=== PATIENT | male | born 1980 | race Caucasian/White ===

== ENCOUNTER 2020-05-18 13:45 | Inpatient (IN) | payer OTHER, SELFPAY ==
--- NOTE | ~2020-05-18 | XR_ITS ---
EXAMINATION: XR knee RT 3V DATE: 05/18/2020 14:53 INDICATION: Right knee pain and swelling. TECHNIQUE: 3 views of right knee were obtained. COMPARISON: Right knee radiographs 09/15/2018 FINDINGS: Bone alignment is normal. No fracture. There is mild osteoarthritis of medial and patellofe moral compartments. No knee joint effusion. There is prepatellar soft tissue swelling. IMPRESSION: 1. Mild right knee osteoarthritis. 2. Prepatellar bursitis. Reviewed, dictated and finalized at location B.
[2020-05-18 13:58] VITALS: BP 131/79; PULSE 78; RESP 20; TEMP 37.1; O2SAT 98
--- NOTE | 2020-05-18 14:18 | ED.LOWEXIN ---
HPI - Extremity Injury (Lower) General Chief Complaint: Extremity Injury, Lower Stated Complaint: Knee Pain, Swelling, Low grade fever Time Seen by Provider: 05/18/20 14:18 Source: patient Mode of arrival: ambulatory Limitations: no limitations History of Present Illness HPI Narrative: 40-year-old man comes to the emergency department complaining of right knee pain redness and swelling. He states the symptoms started 2 days ago. He states he felt feverish but his temperature was not over 100?. He denies nausea, vomiting, numbness, tingling or recent injury. He has no history of diabetes or prior skin infection other than a postop wound infection in his ankle many years ago. complaint: other ( Knee pain and swelling) Onset (ago): day(s) (2) Injury: Right: knee Type of Injury: unknown Severity: moderate Relieving factors: rest Exacerbating factors: movement and palpation Associated symptoms: ambulatory Treatments prior to arrival: NSAIDS Related Data Home Medications Medication Instructions Recorded Confirmed No Home Medications 05/18/20 05/18/20 Allergies Allergy/AdvReac Type Severity Reaction Status Date / Time Penicillins Allergy Unknown Pruritic Verified 05/18/20 14:07 rash morphine Allergy Gastrointestinal Verified 05/18/20 14:07 Upset Review of Systems Constitutional: Constitutional: Denies chills and Reports fever(s) Eyes: Eyes: Denies change in vision and Denies photophobia ENT: Denies dysphagia, Denies nasal congestion and Denies sore throat Cardiovascular: Cardiovascular: Denies chest pain and Denies radiating jaw, neck or arm pain Respiratory: Respiratory: Denies cough, Denies dyspnea and Denies wheezing Gastrointestinal: Gastrointestinal: Denies abdominal pain, Denies nausea and Denies vomiting Musculoskeletal: Musculoskeletal: Reports as per HPI, Reports arthralgias, Reports joint swelling and Denies muscle cramps Integumentary/Breasts: Skin/Breast: Denies pruritus, Denies rash and Denies skin ulcer Neurologic: Denies vertigo, Denies dizziness, Denies syncope, Denies focal weakness and Denies numbness Hematologic/Lymphatic: Hematologic/Lymphatic: Denies easy bleeding and Denies easy bruising Allergic/Immunologic: Allergic/Immunologic: Denies lip swelling, Denies throat swelling and Denies wheezing PMFSH Social History Social History Smoking status: Former smoker Second hand tobacco smoke exposure: No Smoking end date: 10/07/12 Alcohol intake: unknown Substance use: never Substance use type: does not use Gender identity (if verbalized by the patient): Male Sexual Orientation (if Verbalized by the Patient): Straight or Heterosexual Spiritual care concerns: No Exam Const: General: healthy appearing and alert Orientation/consciousness: patient oriented x3 Limitations: no limitations Other: moderate acute distress HENMT: Face and sinus: normal facial exam Eyes: Conjunctivae: conjunctivae normal Pupils: Equal, round and reactive pupils present EOM: EOMs intact bilaterally Resp: Effort & Inspection: normal respiratory effort and not labored Auscultation: clear to auscultation bilaterally, no rales, no rhonchi and no wheezes Cardio: Rate: regular rate Rhythm: regular rhythm Heart sounds: no murmurs Skin: General skin exam: normal color, no jaundice and no pallor Rashes: no rashes Neuro: General: patient oriented x3, moves all extremities, no focal motor deficits and CN's II-XI intact bilaterally Speech: normal speech Gait exam (Neuro): Normal gait present Extrem: General: no clubbing, cyanosis or edema Other: there is edematous swelling over the right patella with erythema and induration. There is no fluctuance. Minimal joint effusion if any. Patient is holding it extended period there is no posterior tenderness and the patient can flex active and passive to 45 Degrees. Distal neurovascu
[2020-05-18 14:43] LABS: Basophils Absolute Auto 0.05 K/mm3 (0.00-0.10); Basophils Percent Auto 0.5 % (0.0-1.0); Eosinophils Absolute Auto 0.09 K/mm3 (0.02-0.50); Eosinophils Percent Auto 0.9 % (1.0-6.0); Hematocrit 44.3 % (40.0-54.0); Hemoglobin 14.8 g/dL (14.0-18.0); Immature Granulocyte Absolute 0.03 K/mm3 (0.00-0.00); Immature Granulocyte Percent A 0.3 % (0.0-0.0); Lymphocytes Absolute Auto 1.57 K/mm3 (1.10-4.50); Lymphocytes Percent Auto 15.7 % (18.0-42.0); Mean Corpuscular HGB Conc 33.4 g/dL (32.0-36.0); Mean Corpuscular Hemoglobin 30.8 pg (27.0-31.0); Mean Corpuscular Volume 92.1 fL (78.0-102.0); Mean Platelet Volume 9.9 fl (8.7-11.0); Monocytes Absolute Auto 1.37 K/mm3 (0.10-0.90); Monocytes Percent Auto 13.7 % (2.0-11.0); Neutrophils Absolute Auto 6.9 K/mm3 (1.7-7.2); Neutrophils Percent Auto 68.9 % (50.0-70.0); Platelet Count Result 303 K/mm3 (150-420); Red Blood Count 4.81 M/mm3 (4.70-6.10); Red Cell Distribution Width 11.9 % (11.6-14.4)
[2020-05-18 15:03] LABS: Alanine Aminotransferase 36 U/L (16-63); Albumin Level 3.8 g/dL (3.4-5.0); Alkaline Phosphatase 86 U/L (46-116); Anion Gap 7 mmol/L (8-16); Aspartate Amino Transferase 24 U/L (15-37); Bilirubin,Total 1.3 mg/dL (0.00-1.00); Blood Urea Nitrogen 27 mg/dL (7-18); CRP 6.3 mg/dL (0.0-0.9); Carbon Dioxide 28 mmol/L (21-32); Chloride 102 mmol/L (98-108); Estimated CRCL calculation 69 ml/min; Estimated Glomerular Filt Rate > 60; Glucose 98 mg/dL (70-99); Osmolality Calculated 289 mOsm/kg (285-295); Potassium 4.3 mmol/L (3.5-5.1); Sodium 137 mmol/L (136-145); Total Protein 7.4 g/dL (6.4-8.2); Uric Acid 3.3 mg/dL (3.5-7.2)
[2020-05-18 15:46] LABS: Erythrocyte Sedimentation Rate 20 mm/hr (0-15)
--- NOTE | 2020-05-18 15:56 | PC.NURSE ---
[id number] Dr Swanson paged for ortho consult
--- NOTE | 2020-05-18 16:25 | PC.NURSE ---
[id number] Dr Swanson returned page and spoke with Dr Dill
[2020-05-18 17:21] VITALS: BP 122/69; PULSE 64; RESP 20; O2SAT 96
[2020-05-18 18:07] VITALS: BP 120/66; PULSE 62; RESP 18; TEMP 36.7; O2SAT 94; BMI 27.9
--- NOTE | 2020-05-18 18:18 | PC.NURSE ---
pt arrive to the unit via w/c at 530pm. assisted to bed, call light in reach. pt denies any significant medical history except ankle fracture with surgical repair many years ago. pt also denies any significant family history. alert and oriented. vanco infusing as ordered. oriented to unit, bed functions and call light use.
[2020-05-18] MEDS: CEFEPIME 1 GM in DEXTROSE 5% IN WATER 50 ML IVPB (19:25)
[2020-05-19] VITALS: BP 110/58; PULSE 66; RESP 16; TEMP 36.2; O2SAT 95
[2020-05-19 05:37] LABS: Basophils Absolute Auto 0.04 K/mm3 (0.00-0.10); Basophils Percent Auto 0.5 % (0.0-1.0); Eosinophils Absolute Auto 0.13 K/mm3 (0.02-0.50); Eosinophils Percent Auto 1.5 % (1.0-6.0); Hematocrit 43.2 % (40.0-54.0); Hemoglobin 14.4 g/dL (14.0-18.0); Immature Granulocyte Absolute 0.03 K/mm3 (0.00-0.00); Immature Granulocyte Percent A 0.4 % (0.0-0.0); Lymphocytes Absolute Auto 1.51 K/mm3 (1.10-4.50); Mean Corpuscular HGB Conc 33.3 g/dL (32.0-36.0); Mean Corpuscular Hemoglobin 30.8 pg (27.0-31.0); Mean Corpuscular Volume 92.3 fL (78.0-102.0); Mean Platelet Volume 9.9 fl (8.7-11.0); Monocytes Percent Auto 14.3 % (2.0-11.0); Neutrophils Absolute Auto 5.5 K/mm3 (1.7-7.2); Neutrophils Percent Auto 65.3 % (50.0-70.0); Platelet Count Result 259 K/mm3 (150-420); Red Blood Count 4.68 M/mm3 (4.70-6.10); Red Cell Distribution Width 11.9 % (11.6-14.4); White Blood Count 8.4 K/mm3 (4.8-10.8)
[2020-05-19 05:54] LABS: Alanine Aminotransferase 56 U/L (16-63); Albumin Level 3.2 g/dL (3.4-5.0); Alkaline Phosphatase 90 U/L (46-116); Anion Gap 6 mmol/L (8-16); Aspartate Amino Transferase 53 U/L (15-37); Blood Urea Nitrogen 24 mg/dL (7-18); CRP 8.3 mg/dL (0.0-0.9); Calcium 8.3 mg/dL (8.5-10.1); Carbon Dioxide 28 mmol/L (21-32); Chloride 103 mmol/L (98-108); Estimated CRCL calculation 73 ml/min; Estimated Glomerular Filt Rate > 60; Glucose 119 mg/dL (70-99); Osmolality Calculated 289 mOsm/kg (285-295); Potassium 4.1 mmol/L (3.5-5.1); Sodium 137 mmol/L (136-145); Total Protein 6.8 g/dL (6.4-8.2)
[2020-05-19] MEDS: CEFEPIME 1 GM in DEXTROSE 5% IN WATER 50 ML IVPB ×2 (05:56→17:49)
[2020-05-19 07:25] VITALS: BP 118/67; PULSE 68; RESP 18; TEMP 37.2; O2SAT 95
--- NOTE | 2020-05-19 07:51 | PM.IMHP ---
H&P: HPI History of Present Illness Date/Time: 05/19/20 07:51 Chief complaint: RIGHT PREPATELLAR BURSITIS Narrative: Varun Keita is a 40 year old male admitted to the ED with low-grade fever and right knee anterior redness, erythema, swelling, warmth, and severe pain. Last night, Varun came to the emergency department complaining of right knee pain redness and swelling. He states the symptoms started 2 days ago. He states he felt feverish but his temperature was not over 100?. He denies nausea, vomiting, numbness, tingling or recent injury. He has no history of diabetes. He was admitted for Septic prepatellar bursitis of right knee. He informed me today that he has injured this right knee before and they have had to remove fluid from that right knee joint due to past pain and swelling, it also required oral antibiotics in the past. He has also had surgery to his left ankle many years ago, in which the surgery resulted in a bone chip, severe infection, with several weeks of IV antibiotics afterwards. Varun denies having multiple skin infections or wounds that results in infections. No one else in the house has multiple skin infections either. 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 Today Varun states that he is no better, is concerned because he stated that he cannot walk on that leg at all without severe in significant pain, and the leg swelling and redness and warmth has not improved in his opinion. Varun was started on vancomycin IV and cephalosporin IV last night and is only received 2 doses of each. We will continue IV antibiotics until tomorrow, with plans to discharge home on oral antibiotics. His blood cultures and urine cultures remain pending with lab. Started him on 400 mg of Motrin q.12 hours for anti inflammatory response. Varun may have aseptic bursitis due to trauma and repetitive injury to his right knee. With his profession of concrete work and frequently kneeling down onto his knees, spreading concrete while on his knees, and that frequent daily trauma of dropping to his knees - this may be setting him up for acute septic and/or aseptic bursitis in this knee. He currently has no puncture wound or abrasion of the skin overlying his right knee or right leg, so nothing suggestive of trauma. No sign of an abscess and no drainage noted. No sign of a spider bite or insect bite. It is difficult to get joint motion from his patella, at this time due to the swelling and fluid. He may have superficial septic bursitis due to his presence of erythema, pain, swelling, and warmth involving the olecranon, prepatellar, or infrapatellar bursae. Review of Systems Review of Systems: All systems reviewed & are unremarkable except as noted in HPI and below Constitutional: Constitutional: Reports as per HPI, Denies chills, Reports fever(s) and Reports weakness Eyes: Eyes: Reports as per HPI, Denies change in vision and Denies photophobia ENT: Reports as per HPI, Reports Normal hearing present, Denies dysphagia, Denies vertigo, Denies dizziness, Denies lip swelling, Denies nasal congestion, Denies sore throat and Denies throat swelling Cardiovascular: Cardiovascular: Reports as per HPI, Denies chest pain, Denies syncope, Denies pedal edema, Reports leg edema ( right leg only, and only at the knee), Denies radiating jaw, neck or arm pain, Denies palpitations and Denies dyspnea Respiratory: Respiratory: Reports as per HPI, Reports no additional respiratory complaints, Denies chest congestion, Denies cough, Denies dyspnea and Denies wheezing Gastrointestinal: Gastrointestinal: Reports as per HPI, Denies abdominal pain, Denies melena, Denies dysphagia, Denies diarrhea, Denies nausea and Denies vomiting Genitourinary: Genitourinary: Reports as per HPI Musculoskeletal: Musculoskeletal: Reports as per HPI, Reports arthralgias ( right knee red warm swollen), Reports joint swelling, Denies muscle
[2020-05-19 08:03] LABS: Magnesium 1.9 mg/dL (1.8-2.4)
[2020-05-19 08:20] LABS: BNP 17.9 pg/mL (0-100)
[2020-05-19 09:00] LABS: Erythrocyte Sedimentation Rate 23 mm/hr (0-15)
[2020-05-19] MEDS: SACCHAROMYCES BOULARDII 250 MG CAPSULE PO ×2 (09:25→16:14)
[2020-05-19] MEDS: LIDOCAINE 5% PATCH 2 PATCH TRANSDERM (09:25)
[2020-05-19] MEDS: ACETAMINOPHEN 500 MG TABLET 1000 MG PO ×2 (09:25→20:52)
[2020-05-19] MEDS: ENOXAPARIN 40 MG/0.4 ML SYRINGE SUB-Q (09:25)
[2020-05-19] MEDS: IBUPROFEN 400 MG TABLET PO (14:46)
[2020-05-19 16:00] VITALS: BP 111/57; PULSE 58; RESP 16; TEMP 37; O2SAT 95
[2020-05-20] VITALS: BP 111/63; PULSE 58; RESP 16; TEMP 37.2; O2SAT 97
[2020-05-20 03:40] LABS: Hematocrit 43.1 % (40.0-54.0); Hemoglobin 14.2 g/dL (14.0-18.0); Mean Corpuscular HGB Conc 32.9 g/dL (32.0-36.0); Mean Corpuscular Hemoglobin 30.5 pg (27.0-31.0); Mean Corpuscular Volume 92.7 fL (78.0-102.0); Mean Platelet Volume 10.1 fl (8.7-11.0); Platelet Count Result 266 K/mm3 (150-420); Red Blood Count 4.65 M/mm3 (4.70-6.10); Red Cell Distribution Width 11.9 % (11.6-14.4)
[2020-05-20 03:56] LABS: Anion Gap 7 mmol/L (8-16); Blood Urea Nitrogen 24 mg/dL (7-18); CRP 7.6 mg/dL (0.0-0.9); Calcium 8.6 mg/dL (8.5-10.1); Carbon Dioxide 28 mmol/L (21-32); Chloride 103 mmol/L (98-108); Estimated CRCL calculation 75 ml/min; Estimated Glomerular Filt Rate > 60; Glucose 107 mg/dL (70-99); Osmolality Calculated 290 mOsm/kg (285-295); Potassium 4.3 mmol/L (3.5-5.1); Sodium 138 mmol/L (136-145); Vancomycin Trough 7.1 ug/mL (10.0-15.0)
[2020-05-20 04:01] LABS: Band Neutrophils Percent 0 % (0-6); Basophils Absolute Manual 0.07 K/mm3 (0-0.1); Basophils Percent Manual 1 % (0-1); Eosinophils Absolute Manual 0.28 K/mm3 (0.02-0.5); Eosinophils Percent Manual 4 % (1-6); Lymphocytes Absolute Manual 1.61 K/mm3 (1.1-4.5); Lymphocytes Percent Manual 23 % (18-44); Monocytes Absolute Manual 1.12 K/mm3 (0.1-0.90); Monocytes Percent Manual 16 % (3-9); Neutrophils Absolute Manual 3.92 K/mm3 (1.3-6.7); Neutrophils Percent Manual 56 % (46-73); Platelet Estimate Adequate (Adequate)
--- NOTE | 2020-05-20 04:12 | PC.NURSE ---
Pipeline called with results of vanco trough. Pharmacist stated level of 7.1 is not unusual for having received 2 doses. Continue same dose and he will pass on to pharmacy in the morning. No new vanco trough ordered at this time.
[2020-05-20] MEDS: IBUPROFEN 400 MG TABLET PO (04:24)
[2020-05-20 05:05] LABS: Erythrocyte Sedimentation Rate 40 mm/hr (0-15)
[2020-05-20] MEDS: CEFEPIME 1 GM in DEXTROSE 5% IN WATER 50 ML IVPB (05:32)
[2020-05-20 07:38] VITALS: BP 113/72; PULSE 56; RESP 18; TEMP 36.6; O2SAT 95
--- NOTE | 2020-05-20 08:14 | PM.DS ---
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 x-ray of the right knee yesterday showed FINDINGS: Bone alignment is normal. No fracture. There is mild osteoarthritis of medial and patellofemoral compartments. No knee joint effusion. There is prepatellar soft tissue swelling IMPRESSION:1. Mild right knee osteoarthritis.2. Prepatellar bursitis. his white count greatly improved from 10 down to a 7 CRP Is elevated ranging from 6.3 to 8.3 to 7.6, ESR has increased as well from 20 to 23 to 40 , I have advised him to follow-up with a home hospice aide as he may be a risk for rheumatoid arthritis due to his profession and the complications he has been having with his joints. no fevers noted overnight continue pain control received 4 doses of IV vanc, will discharge on oral antibiotics per Dr. Hood's orders of PO Bactrim and Keflex. discharge patient to follow-up with an environmental management specialist that can he can see on a regular basis to treat this condition as it will likely flare-up at time to time, and may even become infected again. <Denita Navarro NP - Last Filed: 05/20/20 11:13> (2) Uncontrolled pain: Code(s): R52 - Pain, unspecified <Denita Navarro NP - Last Filed: 05/20/20 11:13> Status: Acute <Denita Navarro NP - Last Filed: 05/20/20 11:13> Assessment and Plan: scheduled Tylenol and scheduled Motrin ordered p.r.n. [place] 5 mg ordered lidocaine patches ice pack to be applied every 6 hours PT evaluation completed and okay to be discharged, no need for outpatient PT OT today pain is well controlled, patient can even been the knee little bit today to a degree of 30-40 degrees patient is able to walk and ambulate about his hospital room today with pain at a tolerable level patient is ready and wants to go home today. <Denita Navarro NP - Last Filed: 05/20/20 11:13> (3) Elevated erythrocyte sedimentation rate: Code(s): R70.0 - Elevated erythrocyte sedimentation rate <Denita Navarro NP - Last Filed: 05/20/20 11:13> Status: Acute <Denita Navarro NP - Last Filed: 05/20/20 11:13> Assessment and Plan: he was started on IV cefazolin and IV vancomycin likely reactive and/or infective will continue to monitor CBC counts continued to encourage oral hydration CRP Is elevated ranging from 6.3 to 8.3 to 7.6, ESR has increased as well from 20 to 23 to 40 , I have advised him to follow-up with a home hospice aide as he may be a risk for rheumatoid arthritis due to his profession and the complications he has been having with his joints. received 4 doses of IV vanc, will discharge on oral antibiotics per Dr. Hood's orders of PO Bactrim and Keflex. <Denita Navarro NP - Last Filed: 05/20/20 11:13> (4) Elevated C-reactive protein (CRP): Code(s): R79.82 - Elevated C-reactive protein (CRP) <Denita Navarro NP - Last Filed: 05/20/20 11:13> Status: Acute <Denita Navarro NP - Last Filed: 05/20/20 11:13> Assessment and Plan: he was started on IV cefazolin and IV vancomycin likely reactive and/or infective will continue to monitor CBC counts continued to encourage oral hydration CRP Is elevated ranging from 6.3 to 8.3 to 7.6, ESR has increased as well from 20 to 23 to 40 ,
[2020-05-20 08:22] LABS: Uric Acid 2.7 mg/dL (3.5-7.2)
[2020-05-20] MEDS: SACCHAROMYCES BOULARDII 250 MG CAPSULE PO (09:05)
[2020-05-20] MEDS: ACETAMINOPHEN 500 MG TABLET 1000 MG PO (09:05)
[2020-05-20] MEDS: LIDOCAINE 5% PATCH 2 PATCH TRANSDERM (09:06)
--- NOTE | 2020-05-20 10:35 | PC.NURSE ---
Discharge to home with son, ambulatory, denies needs, no questions regarding discharge instructions, personal items returned to patient
--- NOTE | 2020-05-21 08:25 | PM.EVENT ---
Event Note Event Note Event Note: This note is written regarding patient encounter 05/20/20. I have reviewed the chart, discussed with the N.P. hospitalist and discussed a plan. I agree with today's note.
== END 2020-05-20 10:35 | disposition home or self-care (01) | DRG 558 ==
LOC: CHSED 14:00 → CHS2ND 17:21
PROVIDERS: Nurse Practitioner; Admitting Provider Emergency Medicine; Emergency Provider Emergency Medicine; Visit Provider Emergency Medicine
DX: M70.41 Prepatellar bursitis, right knee (principal)
CPT/HCPCS: 36415; 73562; 80048; 80053; 80202; 83735; 83880; 84550; 85025; 85652; 86140; 87040; 97161; 99285; A9270; J0692; J1650; J3370

== ENCOUNTER 2022-08-05 08:40 | Emergency (ER) | payer OTHER, SELFPAY ==
--- NOTE | ~2022-08-05 | CT_ITS ---
EXAMINATION: CT abdomen pelvis wo con DATE: 08/05/2022 10:42 INDICATION: Left lower quadrant pain. History of diverticulitis. TECHNIQUE: Computed tomography (CT) of the abdomen and pelvis was performed without intravenous contr ast. The dose-length product was 730.58 mGy-cm. Automated exposure control and iterative reconstructi on technique were employed. COMPARISON: CT dated 09/03/2011 FINDINGS: Lung bases are unremarkable. Heart size normal. No significant pleural or pericardial effus ion. No significant vascular abnormality. No lymphadenopathy. There is mild thickening of the distal descending colon with associated diverticula and surrounding i nflammatory change, consistent with acute diverticulitis. No free air or abscess. The liver, spleen, pancreas, adrenal glands and kidneys are unremarkable. Normal appendix. Gallbladde r is present. No abnormal pelvic masses or fluid collections. 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 IMPRESSION: 1. Acute uncomplicated descending colon diverticulitis. Reviewed, dictated and finalized at location A.
[2022-08-05 08:41] VITALS: BP 140/90; PULSE 76; RESP 20; TEMP 36.2; O2SAT 97
--- NOTE | 2022-08-05 10:25 | ED.ABDPAIN ---
HPI - Abdominal Pain General Chief Complaint: Abdominal Pain Stated Complaint: abd pain Time Seen by Provider: 08/05/22 10:03 History of Present Illness HPI narrative: 42-year-old male history of diverticulitis presents emergency room for evaluation of left lower quadrant pain that began last night. States pain is similar to previous episodes diverticulitis. Denies any constipation or diarrhea. Denies any melanotic or hematochezia stools. Denies any nausea or vomiting. Denies fever. Related Data Allergies Allergy/AdvReac Type Severity Reaction Status Date / Time Penicillins Allergy Unknown Pruritic Verified 05/24/20 09:37 rash morphine Allergy Gastrointestinal Verified 05/24/20 09:37 Upset Review of Systems Review of Systems: CONSTITUTIONAL: Denies fever, chills, or sweats. EYES: Denies visual changes, redness, or discharge. ENT: Denies rhinorrhea, congestion, sore throat, or otalgia. CARDIOVASCULAR: Denies chest pain, palpitations, or edema. RESPIRATORY: Denies cough or dyspnea. GASTROINTESTINAL: Reports left lower quadrant abdominal pain GENITOURINARY: Denies dysuria or hematuria. SKIN: Denies rash or itching. MUSCULOSKELETAL: Denies back pain, joint pain, or myalgia. NEUROLOGIC: Denies headache, numbness, dizziness, or weakness. PSYCHIATRIC: Denies anxiety or depression. [facility] [place] Past Medical History Medical History Elevated C-reactive protein (CRP) Elevated erythrocyte sedimentation rate Prepatellar bursitis Right knee pain Septic prepatellar bursitis of right knee Uncontrolled pain Social History Social History Smoking status: Former smoker Second hand tobacco smoke exposure: No Smoking end date: 10/07/12 Alcohol intake: current Alcohol use details: Occasional Substance use: never Substance use type: does not use Gender identity (if verbalized by the patient): Male Sexual Orientation (if Verbalized by the Patient): Straight or Heterosexual Spiritual care concerns: No Exam Narrative: GENERAL: Well-appearing, well-nourished, no physical limitations, and in no acute distress. HEAD: Normocephalic, atraumatic. EYES: Conjunctivae normal, PERRLA and EOMI. CHEST: Clear to auscultation. No respiratory distress. No wheezes rales or rhonchi. HEART: Regular rate and rhythm. No murmur heard. Normal peripheral pulses. ABDOMEN: Soft, left lower quadrant tenderness, nondistended, normal active bowel sounds. BACK: No CVA tenderness EXTREMITIES: Normal range of motion. No edema. No clubbing or cyanosis SKIN: Warm, dry, no rash. No noted wounds NEURO: No focal deficits. Alert and oriented x3. MAEW. CN's II-XI intact bilaterally, normal gait PSYCH: Cooperative. Normal mood and affect. Course Vital Signs Vital signs: Vital Signs Temperature 36.2 C L 08/05/22 08:41 Pulse Rate 76 08/05/22 08:41 Respiratory Rate 20 08/05/22 08:41 Blood Pressure 140/90 08/05/22 08:41 Pulse Oximetry 97 08/05/22 08:41 Oxygen Delivery Room Air 08/05/22 08:41 Temperature 36.2 C L 08/05/22 08:41 Pulse Rate 76 08/05/22 08:41 Respiratory Rate 20 08/05/22 08:41 Blood Pressure 140/90 08/05/22 08:41 Pulse Oximetry 97 08/05/22 08:41 Oxygen Delivery Room Air 08/05/22 08:41 MDM - Abdominal Pain Lab Data Result diagrams: 08/05/22 10:15 08/05/22 10:15 Labs: Lab Results 08/05/22 08/05/22 08/05/22 Range/Units 10:15 10:15 10:15 WBC 8.4 (4.5-10.0) K/mm3 RBC 4.74 (4.6-6.20) M/mm3 Hgb 14.7 (14.0-18.0) g/dL Hct 42.9 (42.0-52.0) % MCV 90.5 (80-100) fl MCH 31.0 (26-34) pg MCHC 34.3 (32-36) g/dl RDW 12.3 (11.5-14.5) % Plt Count 296 (150-375) k/mm3 MPV 9.6 (7.4-10.4) fl Immature Gran % (Auto) 0.4 (0-0.5) % Neut % (Auto) 65.9 (45.5-73.1) % Lymph % (Auto) 19.2 (18.3-44.2)
[2022-08-05 10:30] LABS: Basophils Absolute Auto 0.1 K/mm3 (0.0-0.1); Basophils Percent Auto 0.6 % (0.2-1.2); Eosinophils Absolute Auto 0.1 K/mm3 (0-0.3); Eosinophils Percent Auto 1.1 % (0-4.4); Hematocrit 42.9 % (42.0-52.0); Hemoglobin 14.7 g/dL (14.0-18.0); Immature Granulocyte Absolute 0.03 K/mm3 (0.00-0.031); Immature Granulocyte Percent A 0.4 % (0-0.5); Lymphocytes Absolute Auto 1.61 K/mm3 (0.9-3.2); Lymphocytes Percent Auto 19.2 % (18.3-44.2); Mean Corpuscular HGB Conc 34.3 g/dl (32-36); Mean Corpuscular Volume 90.5 fl (80-100); Mean Platelet Volume 9.6 fl (7.4-10.4); Monocytes Absolute Auto 1.1 K/mm3 (0.1-0.6); Monocytes Percent Auto 12.8 % (2.6-8.5); Neutrophils Absolute Auto 5.5 K/mm3 (1.3-6.7); Neutrophils Percent Auto 65.9 % (45.5-73.1); Platelet Count Result 296 k/mm3 (150-375); Red Blood Count 4.74 M/mm3 (4.6-6.20); Red Cell Distribution Width 12.3 % (11.5-14.5); White Blood Count 8.4 K/mm3 (4.5-10.0)
[2022-08-05 10:34] LABS: Appearance Urine Clear (Clear); Bilirubin Urine Negative (Negative); Blood Urine Negative (Negative); Color Urine Yellow (Yellow); Glucose Urine UA Negative (Negative); Ketones Urine Negative (Negative); Leukocyte Esterase Ur Negative LEU/UL (Negative); Nitrate Urine Negative (Negative); Protein Urine Negative (Negative); Urobilinogen Urine 0.2 mg/dL (<2.0); pH Urine 8.5 (5.0-9.0)
[2022-08-05 10:41] LABS: Alanine Aminotransferase 35 U/L (6-50); Albumin Level 4.4 g/dL (3.5-5.1); Alkaline Phosphatase 72 U/L (38-126); Anion Gap 8 mmol/L (8-16); Aspartate Amino Transferase 29 U/L (17-59); Bilirubin,Total 1.6 mg/dL (0.2-1.3); Blood Urea Nitrogen 19 mg/dL (9-20); Calcium 8.6 mg/dL (8.4-10.2); Carbon Dioxide 26 mmol/L (22-30); Chloride 102 mmol/L (98-107); Estimated CRCL calculation 73 ml/min; Estimated Glomerular Filt Rate > 60; Glucose 102 mg/dL (65-110); Lipase 59 U/L (23-300); Sodium 136 mmol/L (137-145)
[2022-08-05 10:49] LABS: Add Urine Microscopic? NO
== END 2022-08-05 11:31 | disposition home or self-care (01) ==
PROVIDERS: Emergency Provider Nurse Practitioner Family
DX: K57.32 Diverticulitis of large intestine without perforation or abscess without bleeding (principal); Z87.891 Personal history of nicotine dependence
CPT/HCPCS: 36415; 74176; 80053; 81003; 83690; 85025; 99284

== ENCOUNTER 2022-12-03 09:00 | Outpatient (NON) | payer OTHER, SELFPAY | END 2022-12-03 09:01 | disposition home or self-care (01) | LOC: ANHLAB 12-04 07:57 | PROVIDERS: PCP Physician Assistant; Visit Provider Internal Medicine Gastroenterology | DX: K21.9 Gastro-esophageal reflux disease without esophagitis (principal) | CPT/HCPCS: 88305 ==

== ENCOUNTER 2022-12-03 11:53 | Day surgery (SDC) | payer OTHER, SELFPAY ==
[2022-11-22 13:44] VITALS: BMI 31.6
--- NOTE | 2022-12-03 09:08 | P.PNAN_ITS ---
Anes - Initial Pre Proc Eval Procedure: Operation Date: 12/03/22 13:30 Proposed Procedures p Esophagogastroduodenoscopy - Cyril Fulton MD Date/Time: 12/03/22 09:08 Surgeon: Cyril Fulton MD Pre Op Diagnosis: Gerd Patient Data Age: 42 Gender: M Height: 1.78 m Weight: 100 kg Allergies Allergy/AdvReac Type Severity Reaction Status Date / Time morphine AdvReac Unknown Gastrointestinal Verified 12/03/22 12:46 Upset Penicillins AdvReac Unknown Pruritic Verified 12/03/22 12:46 rash Home Medications Medication Instructions Recorded Confirmed Type No Home Medications 11/22/22 12/03/22 History Patient hx anesthesia problems: none Family hx anesthesia problems: none Results Review: All pre-operative results and documents have been reviewed as part of the pre- operative evaluation. [facility] Past Medical History Medical History Elevated C-reactive protein (CRP) Elevated erythrocyte sedimentation rate GERD (gastroesophageal reflux disease) Prepatellar bursitis Right knee pain Septic prepatellar bursitis of right knee Uncontrolled pain Social History Social History Smoking status: Never smoker Second hand tobacco smoke exposure: No Smoking end date: 10/07/12 Alcohol intake: current Alcohol use details: Occasional Substance use: never Substance use type: does not use Living arrangements: with family Gender identity (if verbalized by the patient): Male Sexual Orientation (if Verbalized by the Patient): Straight or Heterosexual Spiritual care concerns: No Anes - Eval Final PreProcedure Day of Procedure 12/03/22 09:08 Patient weight: obese Heart: regular rate and rhythm Lungs: clear to auscultation Airway: Mallampati scale class II Neurological: alert and oriented Last oral intake: >/= 8 hours ASA classification: II Emergent: no Anesthetic plan: proceed Anesthesia type and monitoring: general GIVS and standard monitoring Results Review: All pre-operative results and documents have been reviewed as part of the pre- operative evaluation. Informed Consent: The patient's anesthetic plan and its attendant risks and benefits were discussed with the patient/family/POA. Questions were solicited and answers provided to the satisfaction of the patient/family/POA.
[2022-12-03 12:30] VITALS: BP 124/80; PULSE 54; RESP 20; TEMP 36.4; O2SAT 100
[2022-12-03] MEDS: LACTATED RINGERS 1,000 ML 150 ML IV CONT (12:45)
--- NOTE | 2022-12-03 12:49 | PM.HPGS ---
History of Present Illness History of Present Illness Consent: Risks, benefits, and alternatives have been discussed and questions answered. Patient agrees to proceed with procedure. Chief complaint: Gerd Narrative: Varun Keita is a 42 year old male with been suffering from heartburn for the past several years. At times he will even wake up at night choking on acid. He began taking omeprazole about 3 or 4 weeks ago it has helped significantly. He denies dysphagia or weight loss. Review of Systems Review of Systems: All systems reviewed & are unremarkable except as noted in HPI and below PMFSH Past Medical History Medical History Elevated C-reactive protein (CRP) Elevated erythrocyte sedimentation rate GERD (gastroesophageal reflux disease) Prepatellar bursitis Right knee pain Septic prepatellar bursitis of right knee Uncontrolled pain Social History Social History Smoking status: Never smoker Second hand tobacco smoke exposure: No Smoking end date: 10/07/12 Alcohol intake: current Alcohol use details: Occasional Substance use: never Substance use type: does not use Living arrangements: with family Gender identity (if verbalized by the patient): Male Sexual Orientation (if Verbalized by the Patient): Straight or Heterosexual Spiritual care concerns: No Meds Home Medications and Allergies Home Medications Medication Instructions Recorded Confirmed Type No Home Medications 11/22/22 12/03/22 History Allergies Allergy/AdvReac Type Severity Reaction Status Date / Time morphine AdvReac Unknown Gastrointestinal Verified 12/03/22 12:46 Upset Penicillins AdvReac Unknown Pruritic Verified 12/03/22 12:46 rash Vital Signs Vital Signs - 24 hr 12/03/22 12:30 Temperature 36.4 C Pulse Rate 54 L Respiratory Rate 20 Blood Pressure 124/80 Pulse Oximetry 100 Oxygen Delivery Room Air Exam Const: General: alert Orientation/consciousness: patient oriented x3 Resp: Auscultation: clear to auscultation bilaterally Cardio: Rhythm: regular rhythm GI: GI Palp: Yes Soft to palpation and No Tenderness to palpation present (GI) Neuro: General: patient oriented x3 Assessment and Plan Assessment and plan (1) GERD (gastroesophageal reflux disease): Code(s): K21.9 - Gastro-esophageal reflux disease without esophagitis Status: Acute Assessment and Plan: EGD with possible biopsy or dilatation or cautery.
[2022-12-03 13:04] VITALS: BP 108/71; PULSE 59; RESP 16; O2SAT 96
[2022-12-03 13:14] VITALS: BP 109/75; PULSE 56; RESP 16; O2SAT 98
[2022-12-03 13:24] VITALS: BP 116/83; PULSE 50; RESP 20; O2SAT 97
--- NOTE | 2022-12-03 13:35 | WPDANESPN ---
Anes - Prog Note Post-Op Date/Time: 12/03/22 13:35 Cardiovascular status: normal Respiratory status: normal Airway patency: baseline Mental status: baseline Post-Op hydration status: normal Vital Signs: Last Vital Signs Temp 36.4 C 12/03/22 12:30 Pulse 54 L 12/03/22 12:30 Resp 20 12/03/22 12:30 BP 124/80 12/03/22 12:30 Pulse Ox 100 12/03/22 12:30 O2 Del Method Room Air 12/03/22 12:30 Pain Score (VAS): 0 I/O: Intake & Output 12/02/22 12/03/22 12/03/22 23:59 07:59 15:59 Intake Total 200 Balance 200 Post-procedural complaints: none Patient Feedback: Patient satisfied with anesthetic care. Other Findings: Patient vital signs back to baseline. Patient denies nausea and vomiting. Patient's pain under control. Patient OK for discharge.
== END 2022-12-03 13:40 | disposition home or self-care (01) ==
PROVIDERS: PCP Physician Assistant; Visit Provider Internal Medicine Gastroenterology
PROC: 0DJ08ZZ Inspection of Upper Intestinal Tract, Via Natural or Artificial Opening Endoscopic (ICD-10-PCS; CPT 43235; principal; 2022-12-03 13:30)
DX: K21.9 Gastro-esophageal reflux disease without esophagitis (principal)
CPT/HCPCS: 43239

== ENCOUNTER 2024-11-06 15:00 | Outpatient (CLI) | payer OTHER, SELFPAY ==
--- NOTE | ~2024-11-06 | CT_ITS ---
EXAMINATION: CT abdomen pelvis w con DATE: 11/06/2024 15:26 INDICATION: Left lower quadrant abdominal pain. TECHNIQUE: Computed tomography (CT) of the abdomen and pelvis was performed with 100 mL Omnipaque 350 intravenous contrast. Automated exposure control and iterative reconstruction technique were employe d. The dose-length product was 741.89 mGy-cm. COMPARISON: CT abdomen and pelvis 08/05/2022 FINDINGS: The visualized portions of the lung bases demonstrate mild atelectasis. No pleural effusion . The heart size is normal. No pericardial effusion. The liver, gallbladder, spleen, pancreas, adrena l glands, and right kidney are normal. There is a 5 mm cyst in the left kidney. There is a left ingui nal hernia containing fat. There are scattered diverticula in the colon. There is wall thickening of the sigmoid colon with mild fat stranding around the sigmoid colon, consistent with diverticulitis. T here are no dilated loops of bowel. The appendix is normal. There are no pathologically enlarged lymp h nodes. There is no free intraperitoneal fluid. There is mild thoracic spondylosis and severe lumbar spondylosis. IMPRESSION: 1. Mild sigmoid diverticulitis. No perforation or abscess. 2. Left inguinal hernia containing fat. Reviewed, dictated and finalized at location A. 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
== END 2024-11-06 15:01 | disposition home or self-care (01) ==
PROVIDERS: PCP Physician Assistant; Visit Provider Physician Assistant
DX: K57.32 Diverticulitis of large intestine without perforation or abscess without bleeding (principal); K40.90 Unilateral inguinal hernia, without obstruction or gangrene, not specified as recurrent
CPT/HCPCS: 74177; Q9967

== ENCOUNTER 2024-12-17 11:39 | Outpatient (CLI) | payer OTHER, SELFPAY ==
--- OUTSIDE RECORDS SUMMARY | 2024-12-17 13:29 | XMS_ITS | Data Portability ---
Author Organization [facility] SARIAnna Edwards Address [address] [place] [address] Care Team Providers Care Disintegrator Operator Name Role Phone ELISHA STANFORD Primary Care Provider Unavailab le Assessment No assessment recorded. Plan of Treatment Reminders Order Date Submit Date Provider Last Modified By Organization Details Last Modified Time Details Appointments None recorded. Lab TSH + free T4, serum 2024 025 [facility], [address] [place] [address], [address], 10:58:39 lipid panel, serum 2024 025 [facility], [address] [place] [address], [address], 5 10:58:39 CBC w/ auto diff 2024 025 [facility], [address] [place] [address], [place], [address], 5 10:58:39 CMP, serum or plasma 2024 025 [facility], [address] [place] [address] 2, [place], [address], 5 10:58:39 PSA, total, serum or plasma 2024 025 [email or web address], [address] [place] [address] 2, [place], [address], 5 12:09:39 testostero ne, total, serum 2024 025 [email or web address], [address], [address], [place], [address], 5 12:09:34 HbA1c (hemoglobi n A1c), blood 2024 025 [email or web address], [address], [address], [place], [address], 5 12:09:15 TSH + free T4, serum 2023 024 [email or web address] [facility], [address] [facility], [place], [address], 4 09:57:43 CBC w/ auto diff 2023 024 [email or web address] [facility], [address] [facility], [facility] [address], [place], [address], 4 09:58:13 CMP, serum or plasma 2023 024 [email or web address] [facility], [address] [facility], [facility] 2, [place], [address], 4 09:58:19 lipid panel, serum 2023 024 [email or web address] [facility], [address] [facility], [facility] 2, [place], [address], 4 09:57:48 PSA, total, serum or plasma 2023 024 [email or web address] [facility], [address], [address], [place], [address], 4 09:58:07 HbA1c (hemoglobi n A1c), blood 2023 024 [email or web address] [facility], [address], [address], [place], [address], 4 09:58:02 Referral None recorded. Procedures colonoscop y screening (PROC) [facility], [address], [address], [place], [address], 5 12:22:22 colonoscop y screening (PROC) 2023 024 [facility], [address], [address], [place], [address], 5 12:56:07 Surgeries None recorded. Imaging CT, abdomen + pelvis, w/ contrast 2024 025 [facility], [address] [place] [address] Dr, [address] [address], [place], [address], 5 08:24:16 Medication Orders omeprazole 40 mg capsule,de layed release 2024 025 [id number], [address] [place], [place], [id number], 5 12:22:22 valacyclov ir 1 gram tablet 2023 024 [id number], [address], [place], [id number], 5 11:56:21 omeprazole 40 mg capsule,de layed release [address] [facility][id number], [address], [place], [id number], 4 11:03:26 Patient TargetsNo targets recorded. Patient InstructionsNo instructions recorded. Reason for Referral None Reported. Results Created Date Observation Date Name Description Value Unit Range Abnormal Flag Note LastModifiedBy Organization Detail LastModifiedTime 11/07/1911/06/2024 CT, abdom en + pelvi s, w/ contr ast No observ ation record ed. [facility] [address], [place], [address], 11/13/2024 16:06:54 Result Notes None recorded. Problems Name Problem SNOMED Code Status Onset Date Resolution Date Notes Provider Name and Address Organization Details Recorded Time Gastroesophage al reflux disease 132604876 Active 2023 Simona Braxton null, [place] - [facility] 4 10:22:36 Herpes labialis 4988382 Active 2023 Simona Braxton [place], [place] [facility] 4 10:22:42 Gastroesophage al reflux disease without esophagitis 224140647 Active 2023 KELLEN Sanders Attn: Glen harper,[address] [place], [address], [place] [facility] 4 11:08:08 Long-term drug therapy Active 2024 KELLEN Sanders Attn: Glen g,[address] [place], [address], [place] [facility] 5 09:36:08 Problem Notes None recorded. Procedures Surgical History None recorded. Imaging Results Imaging Date Name Status LastModified by [facility] Details LastModified Time 11/06/2024 CT, abdomen + pelvis, w/ contrast completed [facility] [address], [place], [address], 11/13/2024 16:06:54 Procedure Notes None recorded. Medical Equipment None Reported. Allergies No known drug allergies Medications Name Sig Start Date Stop Date Status Note LastModified by Organization Details LastModified Time valacyclovir 1 gram tablet Take 2 tablets as needed by oral route for 5 days. active Not Available Not Available No t Available metronidazole 500 mg tablet TAKE 1 TABLET BY MOUTH EVERY 8 HOURS FOR 7 DAYS active Not Available Not Available No t Available ciprofloxacin 500 mg tablet TAKE 1 TABLET BY MOUTH EVERY 12 HOURS active Not Available Not Available No t Available omeprazole 40 mg capsule,delayed release Take 1 capsule every day by oral route. 2024 active Not Available Not Available Not Avai lable Vitals Date Recorded Body height Body mass index (BMI) Body weight Heart rate Body temperature Oxygen saturation Oxygen saturation in Arterial blood by Pulse oximetry Systolic blood pressure Diastolic blood pressure Provider Name and Address Organization Details Last Updated DateTime 4 177.8 cm 29.4 kg/m2 14383.4 4 g 67 /min 98.2 [degF] 98 % 98 % 132 mm[Hg] 80 mm[Hg] Loren Romero MA [facility] 4 16:20:01 Date Recorded Body height Body mass index (BMI) Body weight Oxygen saturation Oxygen saturation in Arterial blood by Pulse oximetry Heart rate Systolic blood pressure Diastolic blood pressure Provider Name and Address Organization Details Last Updated DateTime 5 177.8 cm 30.7 kg/m2 12703.7 7 g 100 % 100 % 55 /min 126 mm[Hg] 82 mm[Hg] Salvador Bailey MA [facility] 5 11:59:40 Date Recorded Respiratory rate Systolic blood pressure Diastolic blood pressure Provider Name and Address Organization Details Last Updated DateTime 11/02/2024 16 /min 122 mm[Hg] 80 mm[Hg] KELLEN Sanders Attn: [address] [place], [address], [facility] 11/02/2024 12:21:37 Social History Question Answer Notes LastModified by Organizat ion Details LastModified Time Tobacco Smoking Status Former Smoker Loren Romero MA null, [facility] 01/17/2024 16:17:04 Do You Have An Advance Directive? Yes Information not available 11/02/2024 What Is Your Level Of Alcohol Consumption? Occasional Information not available 01/17/2024 Are You Blind Or Do You Have Difficulty Seeing? No Information not available 01/17/2024 What Is Your Level Of Caffeine Consumption? Moderate Tea Only Information not available 11/02/2024 Are You Currently Employed? Yes Information not available 11/02/2024 Are You Deaf Or Do You Have Serious Difficulty Hearing? No Information not available 01/17/2024 What Type Of Diet Are You Following? REGULAR Information not available 11/02/2024 What Was The Date Of Your Most Recent Tobacco Screening? 01/17/2024 Information not available 01/17/2024 What Is Your Relationship Status? Information not available 01/17/2024 Do You Use Your Seat Belt Or Car Seat Routinely? Yes Information not available 01/17/2024 Do You Have Smoke And Carbon Monoxide Detectors In Your Home? Yes Information not available 11/02/2024 How Much Tobacco Do You Smoke? 1 PPD Information not available 01/17/2024 Do You Feel Stressed (tense, Restless, Nervous, Or Anxious, Or Unable To Sleep At Night)? [id number] Information not available 01/17/2024 Do You Use Any Illicit Or Recreational Drugs? No Information not available 11/02/2024 Do You Use Sunscreen Routinely? Yes Sometimes Information not available 11/02/2024 Has Tobacco Cessation Counseling Been Provided? No Information not available 11/02/2024 How Many Years Have You Smoked Tobacco? 10 Information not available 01/17/2024 Do You Or Have You Ever Used Any Other Forms Of Tobacco Or Nicotine? No Information not available 11/02/2024 Sex: Unknown Functional Status Question Answer Note LastModified by Organization D etails LastModified Time Are you able to care for yourself? Yes Information n ot available 01/17/2024 What is your exercise level? Heavy Information not available 11/02/2024 Mental Status None recorded. Family History Nothing Reported. Medical History Condition Response Acid Reflux (GERD) Y Immunizations Vaccine Type Date Status Note Provider Nam e and Address Organization Details Recorded Time Td (adult), 5 Lf tetanus toxoid, preservative free, adsorbed 0 completed YONI Muñiz, [place] - [facility] 11/02/2024 11:57:51 Past Encounters Encounter ID Performer Location Encounter Start Date Encounter Closed Date Diagnosis/Indication Diagnosis SNOMED-CT Code Diagnosis ICD10 Code Diagnosis Note [id number] KELLEN Sanders [facility] [place] [address] [place] [address] 01/17/2024 15:49:34 01/17/2024 16:58:27 Adult health examination 145709208 Z00.01 annual wellness completed. fasting labs are all due. Cholesterol screening 27 9469878 Z13.220 Diabetes m ellitus screening 061782200 Z13.1 Screening for malignant neoplasm of prostate 251142942 Z12.5 Screening for malignant neoplasm of colon 615040900 Z12.11 baseline colonoscop y screening is due come this summer age 44 Thyroid di sorder screening 688420775 Z13.29 Gastroesop hageal reflux disease without esophagitis 308205197 K21.9 refill omeprazole 40mg daily. stable. no complaints Herpes labialis 7753924 B00.1 refill on valtrex for PRN use for cold sores. Long-term drug therapy 199652777 Z79.010 [id number] KELLEN Sanders [facility] - [place] [address] [facility] [address] [place] [address] 11/02/2024 11:26:19 11/02/2024 12:43:18 Gastroesophageal reflux disease without esophagitis 605238063 K21.9 stable on omeprazole 40mg daily. stable. no complaints . NERD on EGD 11/2022. Refill on omeprazole given Cholesterol screening 27 7433424 Z13.220 Fasting lipid panel is due Diabetes m ellitus screening 543735145 Z13.1 A1c screening is due Screening for malignant neoplasm of prostate 527601738 Z12.5 Annual prostate lab testing due Screening for malignant neoplasm of colon 219470703 Z12.11 baseline colonoscop y screening is due come this summer age 44. Refer for colonoscop y so we can get on the schedule Thyroid di sorder screening 297189357 Z13.29 Routine thyroid testing ordered Herpes labialis 0669007 B00.1 Stable on valtrex for PRN use for cold sores. Long-term drug therapy 155385556 Z79.899 Routine CBC and CMP due Left lower quadrant pain 691763236 R10.[address] scan abdomen and pelvis with contrast to evaluate left lower quadrant discomfort . Questionab le mild diverticul osis versus hernia. History of diverticulitis 6349644095 37011 Z87.19 History reviewed Endocrine/ metabolic screening 191529724 Z13.228 Patient would like his testostero ne level checked Health Concerns Section Related Observation LastModified by Organization Cookie beckman LastModified Time None Recorded Concern Status LastModified by Organization Details LastModified Time None Recorded Advance Directives Directive Y: Payers Encounter Date Sequence Insurance Name Policy Number Policy Castro Covered Member ID Castro Member ID Guarantor Name 01/17/2024 1 [facility] [id number] Linda Rojasbrigettepenelope [id number] Varun Rojasnury 11/02/2024 1 [facility] [id number] Linda Rojasbrigettepenelope [id number] Varun Rojasbrigettepenelope Notes Date Note Type Note Provider Name and Address Organization Details Recorded Time 01/17/2024 text/html Reflux/GERDRepor te d bypatient.Symptoms Asymptomatic Severity:improving Duration:present 5 or more years Onset/Timing:gone now Context:non-smoker ; no drug/alcohol abuse; no drug alcohol withdrawal Alleviating Factors:medication ; protein pump inhibitors Aggravating Factors:worsened by food Associated Symptoms:no frequent coughing; no feeling of fullness/mass in throat; no hoarseness; no food getting stuck; no belching/burping; no nausea; no vomiting; not vomiting blood; no regurgitation; no shortness of breath; no chest pain; no difficulty swallowing; no pain when swallowing; no bad taste; no decreased appetite; no weight loss; no black/tarry stools; no fatigue; no throat pain;heartburn Pt needs refill for PRN use for cold sore medication. worse with summer weather at times. KELLEN Sanders Attn: [address] [place], [address], [place] [facility] 01/22/2024 11:08:23 11/02/2024 text/html Abdominal PainReported bypatient.Location :[facility] Quality:pain;achin g;dull Severity:mild Duration:intermitt ent Onset/Timing:wax/w ane Modifying Factors:nothing gives relief Associated Symptoms:no fever; no chills; no blood in the urine; no shortness of breath;heartburnRe flux/GERDReported bypatient.Symptoms Asymptomatic Severity:improving Duration:present 5 or more years Onset/Timing:gone now Context:non-smoker ; no drug/alcohol abuse; no drug alcohol withdrawal Alleviating Factors:medication ; protein pump inhibitors Aggravating Factors:worsened by food Associated Symptoms:no frequent coughing; no feeling of fullness/mass in throat; no hoarseness; no food getting stuck; no belching/burping; no nausea; no vomiting; not vomiting blood; no regurgitation; no shortness of breath; no chest pain; no difficulty swallowing; no pain when swallowing; no bad taste; no decreased appetite; no weight loss; no black/tarry stools; no fatigue; no throat pain;heartburn Pt needs refill for PRN use for cold sore medication. worse with summer weather at times. KELLEN Sanders Attn: [address] [place], [address], [facility] 11/09/2024 09:36:28
== END 2024-12-17 11:40 | disposition home or self-care (01) ==
PROVIDERS: PCP Physician Assistant; Visit Provider Surgery
DX: K40.90 Unilateral inguinal hernia, without obstruction or gangrene, not specified as recurrent (principal); Z01.818 Encounter for other preprocedural examination
CPT/HCPCS: 36415; 86850; 86900; 86901

== ENCOUNTER 2024-12-24 01:18 | Day surgery (SDC) | payer OTHER, SELFPAY ==
[2024-12-16 15:09] VITALS: BMI 28.6
--- NOTE | 2024-12-16 15:14 | PC.NURSE ---
Report to the Outpatient Waiting Room, entrance under the green pavilion located off [facility], at time _1200_ on date _[id number]_. Planned Procedure Time: _2pm_.? Time changes happen often and if your time is changed the preop area will call you the afternoon before. - You and your visitor will be asked to self-screen and do not enter if you have any COVID symptoms. Please call surgeon if you need to reschedule. - A mask is optional within the hospital at this time. Patients may have clear liquids (water, carbonated beverages, clear teas, apple juice) until 3 hours prior to surgery with a maximum of 20 ounces. - No food from midnight until time of surgery and no smoking, or chewing tobacco (or any form of nicotine). No chewing gum, candy or mints. Take only the following medications with a SIP of water on the morning of surgery: ___None DO NOT STOP ANY OF YOUR OTHER PRESCRIPTION MEDICATIONS PRIOR TO SURGERY EXCEPT THE FOLLOWING Hold all vitamins and supplements for 3 days per anesthesiologist. Medications to discontinue per physician Date to take last dose Please no make-up, nail albanian, hairspray, perfume, deodorant, or body powder the day of surgery.? No jewelry (including any body piercings) or valuables the day of surgery, leave them at home.? Please take a shower or bath the night before, or the morning of, surgery with an antibacterial soap.? Wear comfortable, loose fitting clothing.? - Jewelry must be removed prior to entering the operating room.? Rings and piercings that are not removed may be cut off. - The hospital will not accept responsibility for valuables.? - Please leave all valuables, including medications, at home the day of surgery. If you are going home after surgery, a licensed fuel truck driver must drive you home.? - NO public transportation without another adult if you receive anesthesia. - We recommend that an adult stay with you for 24 hours following discharge. - We also recommend that you do not drive, make important decision, drink alcoholic beverages, or take any drugs that were not prescribed by your health care provider for at least 24 hours after your discharge time. Follow any additional instructions given to you from your surgeon. Telephone instructions given to __Ken__and asked if any additional questions and then verbalized understanding. Patient advised to call surgeon office or pre surgery nurse liaison [phone] if any additional questions.
[2024-12-24] VITALS (7 sets, daily range): BP systolic 112–140; BP diastolic 69–86; PULSE 45–86; RESP 11–18; TEMP 36.4; O2SAT 97–100
--- OUTSIDE RECORDS SUMMARY | 2024-12-24 01:21 | XMS_ITS | Data Portability ---
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 Plan of Treatment Reminders Order Date Submit Date Provider Last Modified By Organization Details Last Modified Time Details Appointments None recorded. Lab TSH + free T4, serum 2024 025 [facility], [address] [place] [address], [address], 10:58:39 lipid panel, serum 2024 025 [facility], [address] [place] [address], [address], 5 10:58:39 CBC w/ auto diff 2024 025 [facility], [address] [place] [address], [place], [address], 5 10:58:39 CMP, serum or plasma 2024 025 [facility], [address] [place] [address] 2, [place], [address], 5 10:58:39 PSA, total, serum or plasma 2024 025 [email or web address] [facility], [address] [place] [address] 2, [place], [address], 5 12:09:39 testostero ne, total, serum 2024 025 [email or web address] [facility], [address], [address], [place], [address], 5 12:09:34 HbA1c (hemoglobi n A1c), blood 2024 025 [email or web address] [facility], [address], [address], [place], [address], 5 12:09:15 TSH + free T4, serum 2023 024 [email or web address] [facility], [address], [address], [place], [address], 4 09:57:43 CBC w/ auto diff 2023 024 [email or web address] [facility], [address] [facility], [facility] [address], [place], [address], 4 09:58:13 CMP, serum or plasma 2023 024 [email or web address] [facility], [address] [facility], [facility] 2, [place], [address], 4 09:58:19 lipid panel, serum 2023 024 [email or web address] [facility], [address] [facility], [facility] [address], [place], [address], 4 09:57:48 PSA, total, serum or plasma 2023 024 [email or web address] [facility], [address], [address], [place], [address], 4 09:58:07 HbA1c (hemoglobi n A1c), blood 2023 024 [email or web address] [facility], [address], [address], [place], [address], 4 09:58:02 Referral None recorded. Procedures colonoscop y screening (PROC) 2024 025 [email or web address] [facility], [address], [address], [place], [address], 5 12:22:22 colonoscop y screening (PROC) 2023 024 [email or web address], [address], [address], [place], [address], 5 11:21:24 Surgeries None recorded. Imaging CT, abdomen + pelvis, w/ contrast 2024 025 [facility], [address] [place] [address] [address], [address] [address], [place], [address], 5 08:24:16 Medication Orders omeprazole 40 mg capsule,de layed release 2024 025 [facility], [address], [place], [id number], 5 12:22:22 valacyclov ir 1 gram tablet 2023 024 [facility]14846, [address], [place], [id number], 5 11:56:21 omeprazole 40 mg capsule,de layed release [address] [facility]46776, [address], [place], [id number], 4 11:03:26 Patient TargetsNo targets recorded. Patient InstructionsNo instructions recorded. Reason for Referral None Reported. Results Created Date Observation Date Name Description Value Unit Range Abnormal Flag Note LastModifiedBy Organization Detail LastModifiedTime 11/07/1911/06/2024 CT, abdom en + pelvi s, w/ contr ast No observ ation record ed. [facility] [address], [place], [address], 11/13/2024 16:06:54 Result Notes None recorded. Problems Name Problem SNOMED Code Status Onset Date Resolution Date Notes Provider Name and Address Organization Details Recorded Time Gastroesophage al reflux disease 271709065 Active 2023 Simona Braxton null, [place] - [facility] 4 10:22:36 Herpes labialis 4684126 Active 2023 Simona Bra[place], [place] [facility] 4 10:22:42 Gastroesophage al reflux disease without esophagitis 347648497 Active 2023 KELLEN Sanders Attn: Glen harper,[address] [place], [address], [place] [facility] 4 11:08:08 Long-term drug therapy Active 2024 KELLEN Sanders Attn: Glen g,[address] [place], [address], [place] [facility] 5 09:36:08 Problem Notes None recorded. Procedures Surgical History None recorded. Imaging Results Imaging Date Name Status LastModified by [facility]iz [facility] Details LastModified Time 11/06/2024 CT, abdomen + pelvis, w/ contrast completed [facility] [address], [place], [address], 11/13/2024 16:06:54 Procedure Notes None recorded. Medical [...] t Available omeprazole 40 mg capsule,delayed release TAKE 1 CAPSULE DAILY active Not Available Not Available No t Available Vitals Date Recorded Body height Body mass index (BMI) Body weight Heart rate Body temperature Oxygen saturation Oxygen saturation in Arterial blood by Pulse oximetry Systolic blood pressure Diastolic blood pressure Provider Name and Address Organization Details Last Updated DateTime 4 177.8 cm 29.4 kg/m2 09095.4 4 g 67 /min 98.2 [degF] 98 % 98 % 132 mm[Hg] 80 mm[Hg] Loren Romero MA [facility] 4 16:20:01 Date Recorded Body height Body mass index (BMI) Body weight Oxygen saturation Oxygen saturation in Arterial blood by Pulse oximetry Heart rate Systolic blood pressure Diastolic blood pressure Provider Name and Address Organization Details Last Updated DateTime 5 177.8 cm 30.7 kg/m2 40986.7 7 g 100 % 100 % 55 /min 126 mm[Hg] 82 mm[Hg] Salvador Bailey MA [facility] 5 11:59:40 Date Recorded Respiratory rate Systolic blood pressure Diastolic blood pressure Provider Name and Address Organization Details Last Updated DateTime 11/02/2024 16 /min 122 mm[Hg] 80 mm[Hg] KELLEN Sanders Attn: Accounting, [address] [place], [address], [facility] 11/02/2024 12:21:37 Social History Question Answer Notes LastModified by Organizat ion Details LastModified Time Tobacco Smoking Status Former Smoker Loren Romero MA null, [facility] 01/17/2024 16:17:04 Do You Have An [...] Anxious, Or Unable To Sleep At Night)? [id number] Information not available 01/17/2024 Do You Use [...] toxoid, preservative free, adsorbed 0 completed YONI Muiñz [place] - [facility] 11/02/2024 11:57:51 Past Encounters Encounter ID Performer Location Encounter Start Date Encounter Closed Date Diagnosis/Indication Diagnosis SNOMED-CT Code Diagnosis ICD10 Code Diagnosis Note [id number] KELLEN Sanders [facility] [place] [facility] [address] [place] [address] 01/17/2024 15:49:34 01/17/2024 16:58:27 Adult health examination 441024939 Z00.01 annual wellness completed. fasting labs are all due. Cholesterol screening 27 9454061 Z13.220 Diabetes m ellitus screening 476285994 Z13.1 Screening for malignant neoplasm of prostate 259110749 Z12.5 Screening for malignant neoplasm of colon 954370670 Z12.11 baseline colonoscop y screening is due come this summer age 44 Thyroid di sorder screening 599828132 Z13.29 Gastroesop hageal reflux disease without esophagitis 570199787 K21.9 refill omeprazole 40mg daily. stable. no complaints Herpes labialis 0748068 B00.1 refill on valtrex for PRN use for cold sores. Long-term drug therapy 230127727 Z79.647 [id number] KELLEN Sanders [facility] [place] [address] [place] [address] 11/02/2024 11:26:19 11/02/2024 12:43:18 Gastroesophageal reflux disease without esophagitis 715089319 K21.9 stable on omeprazole 40mg daily. stable. no complaints . NERD on EGD 11/2022. Refill on omeprazole given Cholesterol screening 27 4363445 Z13.220 Fasting lipid panel is due Diabetes m ellitus screening 240830538 Z13.1 A1c screening is due Screening for malignant neoplasm of prostate 494484579 Z12.5 Annual prostate lab testing due Screening for malignant neoplasm of colon 516370425 Z12.11 baseline colonoscop y screening is due come this summer age 44. Refer for colonoscop y so we can get on the schedule Thyroid di sorder screening 836723137 Z13.29 Routine thyroid testing ordered Herpes labialis 5187955 B00.1 Stable on valtrex for PRN use for cold sores. Long-term drug therapy 128625044 Z79.899 Routine CBC and CMP due Left lower quadrant pain 258299513 R10.[address] scan abdomen and pelvis with contrast to evaluate left lower quadrant discomfort . Questionab le mild diverticul osis versus hernia. History of diverticulitis 6957544931 91686 Z87.19 History reviewed Endocrine/ metabolic screening 701710904 Z13.228 Patient would like his testostero ne level checked Health Concerns Section Related Observation LastModified by Organization Detai ls LastModified Time None Recorded Concern Status LastModified by Organization Details LastModified Time None Recorded Advance Directives Directive Y: Payers Encounter Date Sequence Insurance Name Policy Number Policy Castro Covered Member ID Castro Member ID Guarantor Name 01/17/2024 1 [facility] ([facility] [id number] Linda Keita [id number] Varun Keita 11/02/2024 1 [facility] ([facility]) [id number] Linda Keita [id number] Varun Keita Notes Date Note Type Note Provider Name [...] at times. KELLEN Sanders Attn: Accounting,[address] [place], [address], [facility] 01/22/2024 11:08:23 11/02/2024 text/html Abdominal PainReported bypatient.Location :[place] Quality:pain;achin g;dull Severity:mild Duration:intermitt ent Onset/Timing:wax/w ane [...] at times. KELLEN Sanders Attn: Accounting[address] [place], [address], [facility] 11/09/2024 09:36:28
--- NOTE | 2024-12-24 11:59 | WPDHPUPDATE1 ---
History and Physical Update Update Date/Time: 12/24/24 11:59 History and Physical has been reviewed, including an updated exam of the patient. There are NO changes in the patient's condition. Risks, benefits, and alternatives have been discussed and questions answered. Patient agrees to proceed with procedure.
[2024-12-24] MEDS: ACETAMINOPHEN 500 MG TABLET 1000 MG PO (12:20)
[2024-12-24] MEDS: KETOROLAC 15 MG/ML VIAL (*BKC) IV PUSH (12:25)
--- NOTE | 2024-12-24 13:45 | WPDANESEPPF ---
Anes - Initial Pre Proc Eval Procedure: Operation Date: 12/24/24 14:00 Proposed Procedures p Robotic Assisted Left Inguinal Hernia Repair - Maya Davenport MD Date/Time: 12/24/24 13:45 Surgeon: Maya Davenport MD Pre Op Diagnosis: Left Inguinal Hernia Patient Data Age: 44 Gender: M Height: 1.79 m Weight: 90.7 kg Last Vital Signs Temp 36.4 C L 12/24/24 12:44 Pulse 58 L 12/24/24 12:44 Resp 18 12/24/24 12:44 BP 135/86 12/24/24 12:44 Pulse Ox 98 12/24/24 12:44 O2 Del Method Room Air 12/24/24 12:44 Allergies Allergy/AdvReac Type Severity Reaction Status Date / Time morphine AdvReac Unknown Gastrointestinal Verified 12/24/24 12:44 Upset Penicillins AdvReac Unknown Pruritic Verified 12/24/24 12:44 rash Home Medications ?Medication ?Instructions ?Recorded ?Confirmed ?Type omeprazole 40 mg capsule,delayed 40 mg PO DAILY 12/09/24 12/24/24 History release valacyclovir 1 gram tablet 1,000 mg PO DAILY 12/09/24 12/24/24 History Patient hx anesthesia problems: none Family hx anesthesia problems: none Results Review: All pre-operative results and documents have been reviewed as part of the pre-operative evaluation. [facility] Past Medical History Medical History GERD (gastroesophageal reflux disease) Prepatellar bursitis Right knee pain Elevated C-reactive protein (CRP) Elevated erythrocyte sedimentation rate Uncontrolled pain Septic prepatellar bursitis of right knee Surgical History Surgical History History of ankle surgery Social History Social History Smoking packs per day: 1 Smoking cigarettes per day: 20.0 Years smoked: 15 Smoking pack-years: 15.00 Smoking status: Former smoker Tobacco type: cigarettes Second hand tobacco smoke exposure: No Smoking end date: 12/16/14 Alcohol intake: current Alcohol use details: Occasional Substance use: never Substance use type: does not use Living arrangements: with family Gender identity (if verbalized by the patient): Male Sexual Orientation (if Verbalized by the Patient): Straight or Heterosexual Spiritual care concerns: No Anes - Eval Final PreProcedure Day of Procedure 12/24/24 13:45 Patient weight: overweight Heart: regular rate and rhythm Lungs: clear to auscultation Airway: Mallampati scale class 1 Neurological: alert and oriented Last oral intake: >/= 8 hours ASA classification: II Emergent: no Anesthetic plan: proceed Anesthesia type and monitoring: general ETT and standard monitoring Results Review: All pre-operative results and documents have been reviewed as part of the pre-operative evaluation. Informed Consent: The patient's anesthetic plan and its attendant risks and benefits were discussed with the patient/family/POA. Questions were solicited and answers provided to the satisfaction of the patient/family/POA.
[2024-12-24] MEDS: LACTATED RINGERS 1,000 ML 30 ML IV CONT ×2 (14:00→15:07)
[2024-12-24] MEDS: ceFAZolin 2 GM/D5W 50 ML 2 GM/50 ML BAG IVPB (14:05)
[2024-12-24] MEDS: BUPIVACAINE/EPINEPHRINE 0.5% 50 ML VIAL 30 ML INFILTRATE (14:14)
--- NOTE | 2024-12-24 15:06 | P.OP_ITS ---
Procedure Note - Detailed Date of Procedure 12/24/24 Pre-op Diagnosis Left Inguinal Hernia Post-op Diagnosis Same Procedure Performed robotic assisted left inguinal hernia repair with mesh Surgeon Maya Davenport MD Anesthesia General Indications 44-year-old male presenting to the office with left inguinal hernia Findings indirect left inguinal hernia Description of Procedure Patient was brought into the operating room and placed in the supine position. After adequate induction of general anesthesia, the patient was prepped and draped in normal sterile fashion. A time-out was then done to verify the pat ient's identity, as well as the procedure being performed. I began by making a 8 mm incision in the supraumbilical region, a Veress needle was then placed into the peritoneal cavity. CO2 gas was then insufflated and after adequate pneumoperitoneum was achieved, the Veress needle was removed. I then placed an 8 mm trocar through this incision. I then placed the endoscope through this trocar site and under direct visualization placed 2 further 8 mm ports in the right and left mid abdomen. The [employer] robot was then docked to the 3 trocar sites. I then scrubbed out and went to the robotic console. Upon examining the pelvis, it was noted that the patient had a moderate left inguinal hernia. The right side was examined and no hernia defect was noted. I began by making a preperitoneal flap approximately 6 cm superior to the defect. This flap was carried medially past the umbilical ligaments and laterally to the transversalis. It then began dissection of my medial compartment taking this down to the pubic tubercle. I then began the lateral dissection taking this down to the transversalis fascia. Once these compartments were achieved, I began dissection around the cord structures. A moderate sized indirect hernia was noted at this point. Using careful dissection, was able to reduce indirect hernia sac off the cord structures. Once this was adequately done, I went ahead and placed a large piece of 3D Max mesh into the abdominal cavity. The mesh was carefully positioned, centering the center of the mesh over the indirect defect. Once this was done, was very satisfied with our repair. Using 3-0 Vicryl sutures, I tacked the mesh medially to Kyle's ligament. Two lateral sutures were placed from the mesh to the transversalis fascia. I then closed the peritoneal flap with a running 2.0 V Lock suture. The abdomen was then desufflated, and all ports were removed. All incisions were then closed with the 4.0 monocryl suture. Dermabond was placed on each wound. The patient tolerated the procedure well, was extubated in the operating room postoperatively, and will now be transferred to the recovery room in stable condition. Implants large 3DMax mesh Estimated Blood Loss 10 Drains No Packing No Pathology None sent Complications No immediate complications Condition Stable Disposition PACU [facility] Billing Surgery - Charge Forward: Surgery Billing
[2024-12-24] MEDS: ONDANSETRON INJ 4 MG/2 ML VIAL IV PUSH (15:29)
[2024-12-24] MEDS: fentaNYL CITRATE INJ (*CRX) 100 MCG/2 ML VIAL 25 MCG IV PUSH ×4 (15:29→15:40)
[2024-12-24] MEDS: oxyCODONE HCL (*CRX) 5 MG TAB IR PO (16:07)
== END 2024-12-24 16:33 | disposition home or self-care (01) ==
PROVIDERS: PCP Physician Assistant; Visit Provider Surgery
PROC: 8E0Y4CZ Robotic Assisted Procedure of Lower Extremity, Percutaneous Endoscopic Approach (ICD-10-PCS; CPT 49650; principal; 2024-12-24 14:00)
DX: K40.90 Unilateral inguinal hernia, without obstruction or gangrene, not specified as recurrent (principal); K21.9 Gastro-esophageal reflux disease without esophagitis; Z98.890 Other specified postprocedural states; Z87.891 Personal history of nicotine dependence
CPT/HCPCS: 49650; S2900; 36415; 86850; 86900; 86901; A9270; C1781; J0690; J1100; J1171; J1885; J2003; J2250; J2405; J2704; J3010; J7120

== ENCOUNTER 2025-03-02 00:21 | Day surgery (SDC) | payer OTHER, SELFPAY ==
[2025-02-02 10:26] VITALS: BMI 28.7
[2025-02-19 13:18] VITALS: BMI 28.7
--- OUTSIDE RECORDS SUMMARY | 2025-03-02 00:31 | XMS_ITS | Data Portability ---
Author Organization [facility] SARIAnna Edwards Address [address] [place] [address] Care Team Providers Care Claim Analyst Name Role Phone ELISHA STANFORD Primary Care Provider Unavailab le Assessment No assessment recorded. Plan of Treatment Reminders Order Date Submit Date Provider Last Modified By Organization Details Last Modified Time Details Appointments None recorded. Lab TSH + free T4, serum 2024 025 [facility], [address] [place] [address], [address], 10:58:39 lipid panel, serum 2024 025 [facility], [address] [place] [address], [address], 5 10:58:39 CBC w/ auto diff 2024 025 [facility], [address] [place] [address], [place], [address], 5 10:58:39 CMP, serum or plasma 2024 025 [facility], [address] [place] [address] 2, [place], [address], 5 10:58:39 PSA, total, serum or plasma 2024 025 [email or web address] [facility], [address] [place] [address] 2, [place], [address], 5 12:09:39 testostero ne, total, serum 2024 025 [email or web address] [facility], [address], [address], [place], [address], 5 12:09:34 HbA1c (hemoglobi n A1c), blood 2024 025 [email or web address] [facility], [address], [address], [place], [address], 5 12:09:15 TSH + free T4, serum 2023 024 [email or web address] [facility], [address] [facility], [address], [place], [address], 4 09:57:43 CBC w/ auto diff 2023 024 [email or web address] [facility], [address] [facility], [facility] [address], [place], [address], 4 09:58:13 CMP, serum or plasma 2023 024 [email or web address] [facility], [address] [facility], [facility] [address], [place], [address], 4 09:58:19 lipid panel, serum 2023 024 [email or web address] [facility], [address] [facility], [facility] 2, [place], [address], 4 09:57:48 PSA, total, serum or plasma 2023 024 [email or web address] [facility], [address], [address], [place], [address], 4 09:58:07 HbA1c (hemoglobi n A1c), blood 2023 024 [email or web address] [facility], [address], [place], [address], 4 09:58:02 Referral None recorded. Procedures colonoscop y screening (PROC) 2024 025 [email or web address] [facility], [address], [address], [place], [address], 5 12:22:22 colonoscop y screening (PROC) 2023 024 [email or web address] [facility], [address], [address], [place], [address], 5 12:50:27 Surgeries None recorded. Imaging CT, abdomen + pelvis, w/ contrast 2024 025 [facility], [address] [place] [address] Dr, [facility] [address], [place], [address], 5 08:24:16 Medication Orders omeprazole 40 mg capsule,de layed release 2024 025 [id number], [address], [place], [id number], 5 12:22:22 valacyclov ir 1 gram tablet 2023 024 [id number], [address], [place], [id number], 5 11:56:21 omeprazole 40 mg capsule,de layed release [address] [id number], [address], [place], [id number], 4 11:03:26 Patient TargetsNo targets recorded. Patient InstructionsNo instructions recorded. Reason for Referral None Reported. Results Created Date Observation Date Name Description Value Unit Range Abnormal Flag Note LastModifiedBy Organization Detail LastModifiedTime 11/07/1911/06/2024 CT, abdom en + pelvi s, w/ contr ast No observ ation record ed. [facility] [address], [place], [address], 11/13/2024 16:06:54 Result Notes None recorded. Problems Name Problem SNOMED Code Status Onset Date Resolution Date Notes Provider Name and Address Organization Details Recorded Time Gastroesophage al reflux disease 172175296 Active 2023 Simona Braxton null, [place] - [facility] 4 10:22:36 Herpes labialis 2075859 Active 2023 Simona Braxton null, [place] - [facility] 4 10:22:42 Gastroesophage al reflux disease without esophagitis 435542003 Active 2023 KELLEN Sanders Attn: [address] [place], [address], [facility] - [facility] 4 11:08:08 Long-term drug therapy Active 2024 KELLEN Sanders Attn: [address] [place], [address], [facility] - [facility] 5 09:36:08 Problem Notes None recorded. Procedures Surgical History Date Name Laterality Status Provider Name and Address Organization Details Recorded Time 12/24/2024 Hernia Repair completed Simona Braxton [place] - [facility] 01/12/2025 10:51:49 Imaging Results None recorded. Procedure Notes None recorded. Medical Equipment None [...] mg capsule,delayed release TAKE 1 CAPSULE DAILY 2024 active Not Available Not Available Not Avai lable Vitals Date Recorded Respiratory rate Systolic And Diastolic Provider Name and Address Organization Details Last Updated DateTime 11/02/2024 16 /min 122/80 mm[Hg] KELLEN Sanders Attn: Accounting,[address] [facility], [place], [address], [facility] 11/02/2024 12:21:37 Date Recorded Body height Body mass index (BMI) Body weight Oxygen saturation Oxygen saturation in Arterial blood by Pulse oximetry Heart rate Systolic And Diastolic Provider Name and Address Organization Details Last Updated DateTime 5 177.8 cm 30.7 kg/m2 12276.7 7 g 100 % 100 % 55 /min 126/82 mm[Hg] Salvador Bailey MA [facility] 5 11:59:40 Date Recorded Body height Body mass index (BMI) Body weight Heart rate Body temperature Oxygen saturation Oxygen saturation in Arterial blood by Pulse oximetry Systolic And Diastolic Provider Name and Address Organization Details Last Updated DateTime 4 177.8 cm 29.4 kg/m2 01452.4 4 g 67 /min 98.2 [degF] 98 % 98 % 132/80 mm[Hg] Loren Romero MA [facility] 16:20:01 Social History Question Answer Notes LastModified by Organizat ion Details LastModified Time Tobacco Smoking Status Former Smoker Loren Romero MA null, [facility] 01/17/2024 16:17:04 Do You Have An Advance Directive? Yes Information not available 11/02/2024 Are You Blind Or Do You Have Difficulty Seeing? No Information not available 01/17/2024 What Is Your Level Of Caffeine Consumption? Moderate Tea Only Information not available 11/02/2024 Are You Deaf [...] PPD Information not available 01/17/2024 Do You Use Sunscreen Routinely? Yes Sometimes Information not available 11/02/2024 Has Tobacco Cessation Counseling Been Provided? No Information not available 11/02/2024 How Many Years Have You Smoked Tobacco? 10 Information not available 01/17/2024 Sex: Unknown Functional Status Question Answer Note LastModified by Organizat ion Details LastModified Time Do you use any illicit or recreational drugs? No Information not available 11/02/2024 Do you or have you ever used any other forms of tobacco or nicotine? No Information not available 11/02/2024 What is your level of alcohol consumption? Occasional Information not available 01/17/2024 Are you currently employed? Yes Information not available 11/02/2024 Are you able to care for yourself? Yes Information n ot available 01/17/2024 What is your exercise level? Heavy Information not available 11/02/2024 Mental Status Question Answer Note LastModified by Organization D etails LastModified Time Do you feel stressed (tense, restless, nervous, or anxious, or unable to sleep at night)? [id number] Information not available 01/17/2024 Family History Nothing Reported. Medical History Condition Response Acid Reflux (GERD) Y Immunizations Vaccine Type Date Status Note Provider Nam e and Address Organization Details Recorded Time Td (adult), 5 Lf tetanus toxoid, preservative free, adsorbed 0 completed YONI Muñiz, [facility] - [facility] 11/02/2024 11:57:51 Past Encounters Encounter ID Performer Location Encounter Start Date Encounter Closed Date Diagnosis/Indication Diagnosis SNOMED-CT Code Diagnosis ICD10 Code Diagnosis Note [id number] Rasheed Valladares MD [facility] - [place] [address] [place] [address] 01/17/2024 15:49:34 01/17/2024 16:58:27 Adult health examination 768784813 Z00.01 annual wellness completed. fasting labs are all due. Cholesterol screening 27 7152334 Z13.220 Diabetes m ellitus screening 453751642 Z13.1 Screening for malignant neoplasm of prostate 404053289 Z12.5 Screening for malignant neoplasm of colon 450507077 Z12.11 baseline colonoscop y screening is due come this summer age 44 Thyroid di sorder screening 368726713 Z13.29 Gastroesop hageal reflux disease without esophagitis 358936803 K21.9 refill omeprazole 40mg daily. stable. no complaints Herpes labialis 8398700 B00.1 refill on valtrex for PRN use for cold sores. Long-term drug therapy 442297151 Z79.281 [id number] Rasheed Valladares MD [facility] [address] [place] [address] 11/02/2024 11:26:19 11/02/2024 12:43:18 Gastroesophageal reflux disease without esophagitis 815414005 K21.9 stable on omeprazole 40mg daily. stable. no complaints . NERD on EGD 11/2022. Refill on omeprazole given Cholesterol screening 27 7796513 Z13.220 Fasting lipid panel is due Diabetes m ellitus screening 416189100 Z13.1 A1c screening is due Screening for malignant neoplasm of prostate 989208046 Z12.5 Annual prostate lab testing due Screening for malignant neoplasm of colon 463500203 Z12.11 baseline colonoscop y screening is due come this summer age 44. Refer for colonoscop y so we can get on the schedule Thyroid di sorder screening 996648644 Z13.29 Routine thyroid testing ordered Herpes labialis 6947842 B00.1 Stable on valtrex for PRN use for cold sores. Long-term drug therapy 247899885 Z79.899 Routine CBC and CMP due Left lower quadrant pain 741049554 R10.[address] scan abdomen and pelvis with contrast to evaluate left lower quadrant discomfort . Questionab le mild diverticul osis versus hernia. History of diverticulitis 2899259371 68682 Z87.19 History reviewed Endocrine/ metabolic screening 144680662 Z13.228 Patient would like his testostero ne level checked Health Concerns Section Related Observation LastModified by Organization Detai ls LastModified Time None Recorded Concern Status LastModified by Organization Details LastModified Time None Recorded Advance Directives Directive Y: Payers Encounter Date Sequence Insurance Name Policy Number Policy Castro Covered Member ID Castro Member ID Guarantor Name 01/17/2024 1 [facility] [id number] Linda Keita [id number] Varun Keita 11/02/2024 1 [facility] [id number] Linda Keita [id number] Varun Keita Notes Date Note Type Note [...] at times. KELLEN Sanders Attn: Accounting[address] [place], [address], [place] - [facility] 01/22/2024 11:08:23 11/02/2024 text/html Abdominal PainReported bypatient.Location :[facility] Quality:pain;achin g;dull Severity:mild Duration:intermitt ent Onset/Timing:wax/w ane [...] at times. KELLEN Sanders Attn: Accounting[address] [place], [address], [facility] - [facility] 11/09/2024 09:36:28
[2025-03-02 12:02] VITALS: BP 132/95; PULSE 56; RESP 16; TEMP 36.1; O2SAT 99; BMI 28.8
[2025-03-02] MEDS: LACTATED RINGERS 1,000 ML 150 ML IV CONT (12:15)
--- NOTE | 2025-03-02 12:29 | P.PNAN_ITS ---
Anes - Initial Pre Proc Eval Procedure: Operation Date: 03/02/25 14:00 Proposed Procedures p Screening Colonoscopy - Lamonte Segura MD Date/Time: 03/02/25 12:29 Surgeon: Lamonte Segura MD Pre Op Diagnosis: Screening Patient Data Age: 44 Gender: M Height: 1.78 m Weight: 91.3 kg Last Vital Signs Temp 97 F L 03/02/25 12:02 Pulse 56 L 03/02/25 12:02 Resp 16 03/02/25 12:02 BP 132/95 H 03/02/25 12:02 Pulse Ox 99 03/02/25 12:02 O2 Del Method Room Air 03/02/25 12:02 Allergies Allergy/AdvReac Type Severity Reaction Status Date / Time morphine AdvReac Unknown Gastrointestinal Verified 03/02/25 12:01 Upset Penicillins AdvReac Unknown Pruritic Verified 03/02/25 12:01 rash Home Medications ?Medication ?Instructions ?Recorded ?Confirmed ?Type omeprazole 40 mg capsule,delayed 40 mg PO DAILY 12/09/24 03/02/25 History release Patient hx anesthesia problems: none Family hx anesthesia problems: none Results Review: All pre-operative results and documents have been reviewed as part of the pre- operative evaluation. REPLACED BY [facility] Past Medical History Medical History (Updated 01/06/25 @ 10:26 by Melisa Laura [facility]) GERD (gastroesophageal reflux disease) Prepatellar bursitis Right knee pain Elevated C-reactive protein (CRP) Elevated erythrocyte sedimentation rate Uncontrolled pain Septic prepatellar bursitis of right knee Surgical History Surgical History (Updated 01/06/25 @ 09:58 by Jackie Wilburn MA) H/O inguinal hernia repair 12/24/24 robotic assisted left inguinal hernia repair with mesh. Dr. Davenport History of ankle surgery Social History Social History Smoking packs per day: 1 Smoking cigarettes per day: 20.0 Years smoked: 15 Smoking pack-years: 15.00 Smoking status: Former smoker Tobacco type: cigarettes Second hand tobacco smoke exposure: No Smoking end date: 12/16/14 Alcohol intake: current Alcohol use details: Occasional Substance use: never Substance use type: does not use Living arrangements: with family Gender identity (if verbalized by the patient): Male Sexual Orientation (if Verbalized by the Patient): Straight or Heterosexual Spiritual care concerns: No Anes - Eval Final PreProcedure Day of Procedure 03/02/25 12:29 Patient weight: normal Heart: regular rate and rhythm Lungs: clear to auscultation Airway: Mallampati scale class II Neurological: alert and oriented Last oral intake: >/= 8 hours ASA classification: II Emergent: no Anesthetic plan: proceed Anesthesia type and monitoring: general GIVS and standard monitoring Results Review: All pre-operative results and documents have been reviewed as part of the pre- operative evaluation. Informed Consent: The patient's anesthetic plan and its attendant risks and benefits were discussed with the patient/family/POA. Questions were solicited and answers provided to the satisfaction of the patient/family/POA.
--- NOTE | 2025-03-02 13:06 | PM.HPGS ---
History of Present Illness History of Present Illness Consent: Risks, benefits, and alternatives have been discussed and questions answered. Patient agrees to proceed with procedure. Chief complaint: Screening Narrative: Varun Keita is a 44 year old male here for first screening colonoscopy Review of Systems Review of Systems: All systems reviewed & are unremarkable except as noted in HPI and below PMFSH Past Medical History Medical History (Updated 03/02/25 @ 13:07 by Lamonte Segura MD) Colon cancer screening GERD (gastroesophageal reflux disease) Prepatellar bursitis Right knee pain Elevated C-reactive protein (CRP) Elevated erythrocyte sedimentation rate Uncontrolled pain Septic prepatellar bursitis of right knee Surgical History Surgical History (Updated 01/06/25 @ 09:58 by Jackie Wilburn MA) H/O inguinal hernia repair 12/24/24 robotic assisted left inguinal hernia repair with mesh. Dr. Davenport History of ankle surgery Social History Social History Smoking packs per day: 1 Smoking cigarettes per day: 20.0 Years smoked: 15 Smoking pack-years: 15.00 Smoking status: Former smoker Tobacco type: cigarettes Second hand tobacco smoke exposure: No Smoking end date: 12/16/14 Alcohol intake: current Alcohol use details: Occasional Substance use: never Substance use type: does not use Living arrangements: with family Gender identity (if verbalized by the patient): Male Sexual Orientation (if Verbalized by the Patient): Straight or Heterosexual Spiritual care concerns: No Meds Home Medications and Allergies Home Medications ?Medication ?Instructions ?Recorded ?Confirmed ?Type omeprazole 40 mg capsule,delayed 40 mg PO DAILY 12/09/24 03/02/25 History release Allergies Allergy/AdvReac Type Severity Reaction Status Date / Time morphine AdvReac Unknown Gastrointestinal Verified 03/02/25 12:01 Upset Penicillins AdvReac Unknown Pruritic Verified 03/02/25 12:01 rash Vital Signs Vital Signs - 24 hr 03/02/25 12:02 Temperature 97 F L Pulse Rate 56 L Respiratory Rate 16 Blood Pressure 132/95 H Pulse Oximetry 99 Oxygen Delivery Room Air Exam Const: General: comfortable and no acute distress HENMT: Face/Nose/Sinus: Normal nares present Eyes: General: appearance normal, both eyes and all related structures Neck: Neck: no JVD Resp: Auscultation: clear to auscultation bilaterally Cardio: Rate: regular rate Rhythm: regular rhythm GI: Inspection: non-distended GI Palp: Yes Soft to palpation Skin: General skin exam: normal color Neuro: General: gait normal Speech: normal speech Extrem: General: normal to inspection Psych: Mental Status: mental status grossly normal Assessment and Plan Assessment and plan (1) Colon cancer screening: Code(s): Z12.11 - Encounter for screening for malignant neoplasm of colon Status: Acute Assessment and Plan: colonoscopy
[2025-03-02 13:30] VITALS: BP 114/66; PULSE 55; RESP 22; O2SAT 99
[2025-03-02 13:40] VITALS: BP 122/68; PULSE 48; RESP 22; O2SAT 100
[2025-03-02 13:50] VITALS: BP 128/78; PULSE 50; RESP 19; O2SAT 100
== END 2025-03-02 13:56 | disposition home or self-care (01) ==
PROVIDERS: PCP Physician Assistant; Referring Provider Physician Assistant; Visit Provider Internal Medicine Gastroenterology
PROC: 0DJD8ZZ Inspection of Lower Intestinal Tract, Via Natural or Artificial Opening Endoscopic (ICD-10-PCS; CPT 45378; principal; 2025-03-02 14:00)
DX: Z12.11 Encounter for screening for malignant neoplasm of colon (principal); K57.30 Diverticulosis of large intestine without perforation or abscess without bleeding; K21.9 Gastro-esophageal reflux disease without esophagitis; Z98.890 Other specified postprocedural states; Z87.891 Personal history of nicotine dependence
CPT/HCPCS: 45378; J2003; J2704; J7120